=== PATIENT | female | born 1985 | race Caucasian/White ===

== ENCOUNTER 2020-12-21 11:57 | Emergency (ER) | payer OTHER ==
[~2020-12-21] VITALS: Ht 167.6 cm; Wt 105.2 kg
[2020-12-21 12:47] LABS: HEMOGLOBIN 14.2 gm/dl (12.3-15.3); RED BLOOD COUNT 5.04 M/UL (4.00-5.10); WHITE BLOOD COUNT 3.8 K/UL (4.5-11.0)
[2020-12-21 13:28] LABS: BUN/CREATININE RATIO 10 (0-10)
== END 2020-12-21 16:40 | disposition home or self-care (01) ==
LOC: ER1 11:57
PROVIDERS: Emergency Medicine
DX: U07.1 COVID-19 (principal); Z23 Encounter for immunization
CPT/HCPCS: 71045; 80053; 82550; 82553; 83735; 83874; 84484; 84703; 85025; 85379; 93005; 99285; M0243

== ENCOUNTER 2021-01-07 13:24 | Emergency (ER) | payer OTHER ==
[2021-01-07 15:27] LABS: HEMOGLOBIN 12.8 gm/dl (12.3-15.3); RED BLOOD COUNT 4.53 M/UL (4.00-5.10)
[2021-01-07 15:38] LABS: BUN/CREATININE RATIO 14 (0-10)
[2021-01-07] MEDS ORDERED: MELOXICAM10 MG PO (16:22)
[2021-01-07] MEDS ORDERED: ROBAXIN 750 MG750 MG PO (16:22)
== END 2021-01-07 16:41 | disposition home or self-care (01) ==
LOC: ER1 13:24
PROVIDERS: Student in an Organized Health Care Education/Training Program
DX: R07.9 Chest pain, unspecified (principal)
CPT/HCPCS: 71045; 80053; 82550; 82553; 83874; 84484; 85025; 85379; 93005; 96374; 99285; J1885

== ENCOUNTER 2021-07-26 18:18 | Emergency (ER) | payer OTHER ==
[~2021-07-26 18:18] MED LIST: MELOXICAM10 MG PO; ROBAXIN 750 MG750 MG PO
== END 2021-07-26 19:44 | disposition left against medical advice (07) ==
LOC: ER1 18:18
DX: M79.673 Pain in unspecified foot (principal); N18.9 Chronic kidney disease, unspecified
CPT/HCPCS: 99281

== ENCOUNTER 2021-08-12 20:09 | Emergency (ER) | payer OTHER ==
[2021-08-12 21:16] LABS: HEMOGLOBIN 13.9 gm/dl (12.3-15.3); RED BLOOD COUNT 4.95 M/UL (4.00-5.10)
[2021-08-12 21:20] LABS: BUN/CREATININE RATIO 17 (0-10)
== END 2021-08-12 22:41 | disposition left against medical advice (07) ==
LOC: ER1 20:09
PROVIDERS: Family Medicine
DX: O99.891 Other specified diseases and conditions complicating pregnancy (principal); R10.9 Unspecified abdominal pain
CPT/HCPCS: 80053; 81001; 84702; 84703; 85025; 99281

== ENCOUNTER 2021-10-12 10:17 | Emergency (ER) | payer OTHER | END 2021-10-12 10:30 | disposition left against medical advice (07) | LOC: ER1 10:17 | DX: Z53.21 Procedure and treatment not carried out due to patient leaving prior to being seen by health care provider (principal) ==